=== PATIENT | female | born 2000 | race Two or more races ===

== ENCOUNTER 2021-11-20 09:51 | Emergency (ER) | payer OTHER ==
[2021-11-20 10:05] VITALS: BP 132/80
[2021-11-20 10:31] LABS: BASOPHILS % (AUTO) 0.4 %; HCT - HEMATOCRIT 37.3 % (37.0-47.0); HGB - HEMOGLOBIN 12.2 g/dL (12.0-16.0); LYMPHOCYTES # (AUTO) 1.3 10^3/uL (1.5-3.5); LYMPHOCYTES % (AUTO) 26.1 %; MEAN CORPUSCULAR HEMOGLOBIN 27.9 pg (27.0-31.0); MEAN CORPUSCULAR HGB CONC 32.7 g/dL (32.0-36.0); MEAN CORPUSCULAR VOLUME 85.2 fL (81.0-99.0); MEAN PLATELET VOLUME 9.4 fL (7.9-10.8); MONOCYTES # (AUTO) 0.3 10^3/uL (0.0-1.0); MONOCYTES % (AUTO) 5.3 %; NEUTROPHILS # (AUTO) 3.4 10^3/uL (1.5-6.6); PLT - PLATELET COUNT 300 10^3/uL (130-450); RED BLOOD COUNT 4.38 10^6/uL (4.20-5.40); RED CELL DISTRIBUTION WIDTH 13.5 % (12.0-15.0); WHITE BLOOD COUNT 5.1 x10^3/uL (4.8-10.8)
[2021-11-20 10:48] LABS: ALBUMIN 4.2 g/dL (3.2-5.5); ALBUMIN/GLOBULIN RATIO 1.7 (1.0-2.2); BILIRUBIN,TOTAL 0.8 mg/dL (0.2-1.0); CALCIUM 9.2 mg/dL (8.5-10.3); CREATININE 0.5 mg/dL (0.4-1.0); POTASSIUM 3.7 mmol/L (3.5-5.0); TOTAL PROTEIN 6.7 g/dL (6.7-8.2)
[2021-11-20 10:52] LABS: BILIRUBIN,URINE NEGATIVE (NEGATIVE); CLARITY,URINE CLEAR (CLEAR); GLUCOSE, URINE (UA) NEGATIVE (NEGATIVE); KETONES,URINE (UA) NEGATIVE (NEGATIVE); LEUKOCYTE ESTERASE, URINE NEGATIVE (NEGATIVE); NITRITE,URINE NEGATIVE (NEGATIVE); OCCULT BLOOD,URINE MODERATE (NEGATIVE); PH,URINE 6.5 PH (5.0-7.5); PROTEIN,URINE NEGATIVE (NEGATIVE); UROBILINOGEN,URINE 0.2 (NORMAL) E.U./dL (NORMAL)
[2021-11-20 11:07] LABS: BACTERIA,URINE Few /HPF (None Seen); RBC,URINE 0-5 /HPF (0-5); SQUAMOUS EPITHELIAL CELL,UR FEW Squamous (<= Few); WBC,URINE 0-3 /HPF (0-5)
--- NOTE | 2021-11-20 11:18 | ED Physician Documentation ---
PD HPI FEMALE - Stated complaint Stated Complaint: FEMALE /BLEEDING - Chief complaint Chief Complaint: Abd Pain - History obtained from History obtained from: Patient - History of Present Illness Timing - onset: How many days ago (7) - Additional information Additional information: 20yoF at 4wks gestation presents for suprapubic pain and vaginal bl eeding. Reports "a dozen" positive home tests, most recently this morning. Unable to make appointment with [facility] clinic and was referred here. Does not know blood type. No established OBGYN care for this Review of Systems Ten Systems: 10 systems reviewed and negative Constitutional: denies: Fever, Chills GI: reports: Abdominal Pain (suprapubic). denies: Nausea, Vomiting, Constipation, Diarrhea : reports: Vaginal bleeding, Now EGA (4wks) PD PAST MEDICAL HISTORY - Past Medical History Past Medical History: No - Allergies Allergies/Adverse Reactions: Allergies Allergy/AdvReac Type Severity Reaction Status Date / Time No Known Drug Allergies Allergy Verified 11/20/21 10:06 - Social History Does the pt smoke?: No Smoking Status: Never smoker PD ED PE NORMAL - Vitals Vital signs reviewed: Yes - General General: Alert and oriented X 3, No acute distress, Well developed/nourished, Other - HEENT HEENT: Atraumatic, PERRL, EOMI, Ears normal, Moist mucous membranes, Pharynx benign, Dentition benign, Other - Neck Neck: Supple, no meningeal sign, No bony TTP, No adenopathy, Thyroid normal, No JVD, No bruit, C-Spine cleared by NEXUS criteria, Other - Cardiac Cardiac: RRR, No murmur, No gallop, No rub, Strong equal pulses, Other - Respiratory Respiratory: No respiratory distress, Clear bilaterally, Other - Abdomen Abdomen: Normal bowel sounds, Soft, Non tender, Non distended, No organomegaly, Other - Female Female : Deferred - Back Back: No CVA TTP, No spinal TTP - Derm Derm: Normal color, Warm and dry, No rash, Other - Extremities Extremities: No deformity, No tenderness to palpate, Normal ROM s pain, No edema, No calf tenderness / cord, Other - Neuro Neuro: Alert and oriented X 3, direct marketing manager 2-12 intact, No motor deficit, No sensory deficit, Normal speech, Other Results - Vitals Vitals: Vital Signs - 24 hr 11/20/21 10:02 Temperature 36.4 C L Heart Rate 74 Respiratory 16 Rate Blood Pressure 132/80 H O2 Saturation 100 Oxygen O2 Source Room air - Labs Labs: Laboratory Tests 11/20/21 11/20/21 11/20/21 10:20 10:22 10:22 WBC 5.1 RBC 4.38 Hgb 12.2 Hct 37.3 MCV 85.2 MCH 27.9 MCHC 32.7 RDW 13.5 Plt Count 300 MPV 9.4 Neut # (Auto) 3.4 Lymph # (Auto) 1.3 L [place] # (Auto) 0.3 Eos # (Auto) 0.0 Baso # (Auto) 0.0 Absolute Nucleated RBC 0.00 Nucleated RBC % 0.0 Sodium 140 Potassium 3.7 Chloride 105 Carbon Dioxide 27 Anion Gap 8.0 BUN 10 Creatinine 0.5 Estimated GFR (MDRD) 154 Glucose 85 Calcium 9.2 Total Bilirubin 0.8 AST 16 ALT 14 Alkaline Phosphatase 71 Total Protein 6.7 Albumin 4.2 Globulin 2.5 Albumin/Globulin Ratio 1.7 Lipase 23 HCG, Quant Urine Color LIGHT YELLOW Urine Clarity CLEAR Urine pH 6.5 Ur Specific [place] <=1.005 Urine Protein NEGATIVE Urine Glucose (UA) NEGATIVE Urine Ketones NEGATIVE Urine Occult Blood MODERATE H Urine Nitrite NEGATIVE Urine Bilirubin NEGATIVE Urine Urobilinogen 0.2 (NORMAL) Ur Leukocyte Esterase NEGATIVE Urine RBC 0-5 Urine WBC 0-3 Ur Squamous Epith Cells FEW Squamous Urine Bacteria Few Ur Microscopic Review INDICATED Urine Culture Comments NOT INDICATED Blood Type 11/20/21 11/20/21 10:22 10:22 WBC RBC Hgb Hct MCV MCH MCHC RDW Plt Count MPV Neut # (Auto) Lymph # (Auto) [place] # (Auto) Eos # (Auto) Baso # (Auto) Absolute Nucleated RBC Nucleated RBC % Sodium Potassium Chloride Carbon Dioxide Anion Gap BUN Creatinine Estimated GFR (MDRD) Glucose Calcium Total Bilirubin AST ALT Alkaline Phosphatase Total Protein Albumin Globulin Albumin/Globulin Ratio Lipase HCG, Quant 2.97 Urine Color Urine Clarity Urine pH Ur Specific [place] Urine Protein Urine Glucose (UA) Urine Ketones Urine Occult Blood Urine Nitrite Urine Bilirubin Urine Urobilinogen Ur Leukocyte Esterase Urine RBC Urine WBC Ur Squamous Epith Cells Urine Bacteria Ur Microscopic Review Urine Culture Comments Blood Type O POSITIVE PD MEDICAL DECISION MAKING - ED course Complexity details: reviewed results, re-evaluated patient, considered differential, d/w patient ED course: Vaginal bleeding in early . Quant negative here. US negative for acute findings. O positive blood type. Patient educated on findings. Likely bighted ovum. Given resources on OBGYN clinics in the area. Departure - Departure Disposition: 01 Home, Self Care Clinical Impression: Abnormal uterine bleeding Condition: Good Instructions: ED Bleed Irregular Vaginal Discharge Date/Time: 11/20/21 13:22
--- NOTE | 2021-11-20 13:10 | Ultrasound Report ---
PROCEDURE: Pelvic w/Transvaginal INDICATIONS: VAGINAL BLEEDING, PELVIC PAIN TECHNIQUE: Real-time scanning was performed of the pelvic organs, with image documentation. Additional endovagi nal scanning was necessary due to incomplete visualization of the adnexal and endometrial structures by transabdominal scanning. COMPARISON: None. FINDINGS: Uterus: Uterus is anteverted and mildly enlarged in size at 9.3 x 4.2 x 5.3 cm. The myometrium is h omogeneous. The endometrium measures 14.5 mm in combined thickness. Ovaries: The right ovary measures 3.7 x 1.7 x 2.0 cm, with a calculated ovarian volume of 6.5 cc. T he left ovary measures 3.6 x 1.7 x 1.6 cm, with a calculated ovarian volume of 5.1 cc. The ovaries h ave a normal sonographic appearance. Less than 12 follicles can be seen in each ovary. No adnexal m asses are seen. Other: No pathologic free abdominal or pelvic fluid. Trace free fluid in the cul-de-sac. IMPRESSION: Unremarkable exam. No visualized intrauterine or extrauterine . Reviewed by: Coral Whalen MD on 11/20/2021 1:08 PM PDT Approved by: Coral Whalen MD on 11/20/2021 1:08 PM PDT Station ID: [id number]
== END 2021-11-20 13:22 | disposition home or self-care (01) ==
LOC: ED 09:51
DX: O20.9 Hemorrhage in early pregnancy, unspecified (principal); Z3A.01 Less than 8 weeks gestation of pregnancy
CPT/HCPCS: 36415; 80053; 81001; 81003; 83690; 84702; 85025; 86900; 86901; 87086; 99282; 99284